=== PATIENT | male | born 1955 | race Caucasian/White ===

== ENCOUNTER 2025-02-24 10:28 | Observation (INO) ==
--- NOTE | 2025-02-15 11:40 | PAT Medication Instructions ---
Medication Instructions Date of Service February 15, 2025 Home Medications Medication Instructions Recorded ciprofloxacin HCl 500 mg tablet 500 mg PO BID #2 tabs 06/14/23 tamsulosin 0.4 mg capsule (Flomax) 0.4 mg PO QAM ciprofloxacin HCl 500 mg tablet 500 mg PO BID finasteride 5 mg tablet 5 mg PO QAM loratadine 10 mg capsule 10 mg PO QAM yrmefbonlqjg-mty-mfpz 45 mg-mefolate 800 mcg DFE-K1 120 mcg capsule (Bariatric Multivitamins) 1 cap PO QAM omeprazole 20 mg tablet,delayed release 20 mg PO QAM sildenafil (pulm.hypertension) 20 mg tablet 20 mg PO TID PRN DO NOT take the morning of surgery loratadine 10 mg capsule 10 mg PO QAM kkoyuqcbeubt-ohh-jvtq 45 mg-mefolate 800 mcg DFE-K1 120 mcg capsule (Bariatric Multivitamins) 1 cap PO QAM sildenafil (pulm.hypertension) 20 mg tablet 20 mg PO TID PRN Take morning of surgery With a small sip of water, OTHERWISE NOTHING TO EAT OR DRINK AFTER MIDNIGHT: tamsulosin 0.4 mg capsule (Flomax) 0.4 mg PO QAM ciprofloxacin HCl 500 mg tablet 500 mg PO BID finasteride 5 mg tablet 5 mg PO QAM omeprazole 20 mg tablet,delayed release 20 mg PO QAM Take evening before surgery ciprofloxacin HCl 500 mg tablet 500 mg PO BID Other Notes If you have any questions please call us at [phone] or [phone] or [phone] or [phone]
--- NOTE | 2025-02-17 12:37 | Anesthesiology Consultation ---
Date of Service February 17, 2025 Assessment & Plan (1) Encounter for pre-operative examination: - Infectious disease screening: Per assessment on 02/17/25- No known recent infectious disease contacts or current infectious disease symptoms. - Outpatient joint assessment: Pt currently scheduled for inpatient pathway. If surgeon requests review for outpatient joint pathway, patient is an acceptable candidate for outpatient joint program from anesthesia standpoint pending surgeon's office assessment that patient is motivated, has good support and completes Same Day Joint Program preop requirements. - [facility] Otolaryngology visit 11/09/24: "He has been experiencing a sore throat, particularly exacerbated by talking, and notes that his voice sometimes becomes lower or almost nonexistent. The sore throat has not improved significantly since starting nystatin, although his cough has lessened. During a recent colonoscopy and endoscopy, a finding was noted on his arytenoid, though he is unsure of its implications. He describes worsening of his voice with increased talking and experiences a sore throat... Procedure: Laryngoscopy.. Description: The scope was inserted through the nose. The left side of the larynx appeared asymmetric. The left true vocal cord was slightly swollen without ulcerative areas. Both vocal cords moved well.. Left vocal cord swelling above the true vocal cord, asymmetric but with normal movement, no ulceration.. Order CT scan of the neck with contrast... Schedule video stroboscopy with speech pathologist. Significant nasal drainage consistent with chronic rhinitis." CT Neck not scheduled until 2025 (after upcoming surgery). Patient denies odynophagia or dysphagia at PAT visit 02/17/25. Case reviewed with Dr. Escalante- feels patient okay to proceed as scheduled; nothing further needed preoperatively from his perspective. - PCP note 02/18/25: Low risk.. Patient is cleared for scheduled surgery. Chart Review Chart Review: Acceptable Risk for Surgery (pending evaluation DOS) and Patient seen in Pre Admission Testing Teaching & Discussion Pre-Anesthesia Teaching/Discussion Notes: Instructed NPO after midnight before surgery,except medications with 15 cc of water. Medication instructions provided according to the [facility] guidelines. History Surgery Operation Date: 02/24/25 12:35 Proposed Procedures p Right Knee Total Knee Arthroplasty(Right) - To Cardona MD Height/Weight Height: 5 ft 11 in Weight: 86.2 kg Allergies Allergy/AdvReac Type Severity Reaction Status Date / Time No Known Allergies Allergy Unknown NO Verified 02/24/25 10:40 Medications Home Medications Medication Instructions Recorded Confirmed Last Taken tamsulosin 0.4 mg capsule (Flomax) 0.4 mg PO QAM 05/10/23 02/24/25 02/23/25 07:30 finasteride 5 mg tablet 5 mg PO QAM 02/15/25 02/24/25 02/23/25 07:30 loratadine 10 mg capsule 10 mg PO QAM 02/15/25 02/24/25 02/23/25 07:30 utujbawcefrk-oiz-dewg 45 1 cap PO QAM 02/15/25 02/24/25 02/23/25 07:30 mg-mefolate 800 mcg DFE-K1 120 mcg capsule (Bariatric Multivitamins) omeprazole 20 mg tablet,delayed 20 mg PO QAM 02/15/25 02/24/25 Unknown release sildenafil (pulm.hypertension) 20 20 mg PO TID PRN Sexual Activity 02/15/25 02/24/25 Unknown mg tablet Active Medications Generic Name Dose Route Start Last Admin Trade Name Freq PRN Reason Stop Dose Admin Acetaminophen 1,000 mg 02/24/25 06:00 02/24/25 10:43 Acetaminophen 500 Mg Tab PO 02/24/25 18:00 1,000 mg PREOP MASHA Administration Celecoxib 200 mg 02/24/25 06:00 02/24/25 10:43 Celebrex 200 Mg Cap PO 02/24/25 18:00 200 mg PREOP MASHA Administration Dexamethasone Sodium Phosphate 10 mg 02/24/25 06:00 02/24/25 10:43 DexamethasonePf 10 Mg/Ml Vial IV 02/24/25 18:00 10 mg PREOP MASHA Administration Famotidine 20 mg 02/24/25 06:00 02/24/25 10:43 Famotidine 20 Mg Tab PO 02/24/25 18:00 20 mg PREOP MASHA Administration Gabapentin 300 mg 02/24/25 06:00 02/24/25 10:44 Gabapentin 300 Mg Cap PO 02/24/25 18:00 300 mg PREOP MASHA Administration Lactated Ringer's 1,000 mls @ 60 mls/hr 02/24/25 06:00 02/24/25 10:44 Lr IV 02/24/25 22:39 Not Given .[id number] MASHA Lactated Ringer's 1,000 mls @ 15 mls/hr 02/24/25 06:00 02/24/25 10:55 Lr IV 02/24/25 18:00 15 mls/hr .Q24H MASHA Administration Metoclopramide HCl 10 mg 02/24/25 06:00 02/24/25 10:43 Metoclopramide Hcl 10 Mg Tablet PO 02/24/25 18:00 10 mg PREOP MASHA Administration Past Medical History Medical History BPH (benign prostatic hyperplasia) Follows with urology (Dr. 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 Asymmetry of the left supraglottis with no ulceration seen somewhat sluggish movement of the left but does appear that bilateral vocal cords are mobile. Subglottis is clear. Contour of the bilateral vocal cords are clean and healthy with no nodule seen." Neck CT ordered (not scheduled until 03/2025) Hx of colonic polyps Exercise / Class Metabolic Activity II 4-5 Yardwork/Stairs/Walk up hill (one FS: No CP, no SOB) Past Surgical History Surgical History Hx of cardiac cath 35 years ago- no stents Hx of colonoscopy with polypectomy (10/20/24) History of esophagogastroduodenoscopy (EGD) (10/20/24) History of intestinal surgery (11/07/20) Herniated bowel- ?result of gastric bypass History of back surgery (10/22/19) L3-5 (had fracture f/t injury- falling off of truck onto a ramp) 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 Physical Exam Vital Signs Last Vital Signs Temp 36.7 C 02/24/25 10:33 Pulse 59 L 02/24/25 10:33 Resp 18 02/24/25 10:33 BP 144/81 H 02/24/25 10:33 Pulse Ox 100 02/24/25 10:33 O2 Del Method Room Air 02/24/25 10:33 BP 123/69 P 60 TEMP 97.5 SP02 97%RA RESP 18 Physical Full cervical extension range of motion. Full TMJ range of motion. TMD 3 finger breaths Mallampati Score III Dentition: missing molars Lungs: clear throughout to auscultation Cardiac: regular rate and rhythm, no murmurs noted Spine: normal Carotid arteries: negative bruit Extremities: no LE edema Lab Results Anesthesia Preop Results Results Anesthesia Widget: WBC 6.35 K/ul (4.8-10.8) 02/17/25 Hgb 13.3 g/dL (14.0-18.0) L 02/17/25 Hct 39.3 % (42.0-52.0) L 02/17/25 Plt 196 K/uL (130-400) 02/17/25 Na 136 mmol/L (136-145) 02/17/25 K 4.4 mmol/L (3.5-5.1) 02/17/25 Cl 105 mmol/L (98-107) 02/17/25 CO2 26 mmol/L (21-32) 02/17/25 BUN 12 mg/dl (6-23) 02/17/25 Creat 1.09 mg/dl (0.6-1.4) 02/17/25 Glucose Level 97 mg/dl (70-99(Fasting)) 02/17/25 PT 11.8 Seconds (9.0-12.0) 02/17/25 PTT 27 Seconds (21-31) 02/17/25 INR 1.1 (0.9-1.1) 02/17/25 Urine Color Yellow 02/17/25 Urine Appearance Clear (Clear) 02/17/25 Urine pH 6.0 (4.5-7.5) 02/17/25 Urine Specific [place] 1.005 (1.000-1.030) 02/17/25 Urine Protein Negative (Negative) 02/17/25 Urine Glucose (UA) Negative (Negative) 02/17/25 Urine Ketones Negative (Negative) 02/17/25 Urine Blood Negative (Negative) 02/17/25 Urine Nitrite Negative (Negative) 02/17/25 Urine Bilirubin Negative (Negative) 02/17/25 Urine Urobilinogen Negative (Negative) 02/17/25 Urine Leukocyte Esterase Negative (Negative) 02/17/25 Blood Type A Positive 02/17/25 Antibody Screen NEGATIVE 02/17/25 Testing Electrocardiogram Date: 02/17/25 SB at 58bpm. "Otherwise normal ECG" Chest X-Ray Date: 02/17/25 FINDINGS: Lung volumes are normal. Lungs are clear. There is no pneumothorax or pleural effusion. Cardiac size is normal. Mediastinal contours are normal. There is no evidence for pulmonary edema. IMPRESSION: No acute cardiopulmonary findings. Other Testing Flexible nasopharyngoscopy Date: 11/09/24 Asymmetry of the left supraglottis with no ulceration seen somewhat sluggish movement of the left but does appear that bilateral vocal cords are mobile. Subglottis is clear. Contour of the bilateral vocal cords are clean and healthy with no nodule seen.
--- NOTE | 2025-02-23 19:51 | History & Physical Report ---
Date of Service February 23, 2025 Assessment & Plan (1) Osteoarthritis of right knee: Plan: Severe end-stage osteoarthritis right knee failed conservative management patient also has likely inflammatory arthritic changes due to chondrocalcinosis throughout the knee. Plan is to proceed with right total knee replacement possible synovectomy. Patient scheduled for [place] triathlon total knee replacement. Osteoarthritis type: primary Qualified Code(s): M17.11 - Unilateral primary osteoarthritis, right knee (2) Chondrocalcinosis: History of Present Illness Chief Complaint: Chronic right knee pain Primary Care Provider: Mraiano Willard DO 69-year-old male with right knee pain related to osteoarthritis and failed conservative management. History of left knee replacement in the past. * Patient denies headaches, sweats, fevers, chills, double vision, blurred vision, cough, sore throat, dysphagia, chest pain, sob, wheezing, n/v/d/c, numbness, tingling, fatigue, urinary symptoms, mood disorders. ROS positive for osteoart hritis of the spine and a enlarged prostate Allergies Allergy/AdvReac Type Severity Reaction Status Date / Time No Known Allergies Allergy Unknown NO Verified 02/15/25 10:49 Home Medications Medication Instructions Recorded Confirmed Type tamsulosin 0.4 mg capsule (Flomax) 0.4 mg PO QAM 05/10/23 02/15/25 History finasteride 5 mg tablet 5 mg PO QAM 02/15/25 02/15/25 History loratadine 10 mg capsule 10 mg PO QAM 02/15/25 02/15/25 History qcsochrmhkhq-dhg-emel 45 1 cap PO QAM 02/15/25 02/15/25 History mg-mefolate 800 mcg DFE-K1 120 mcg capsule (Bariatric Multivitamins) omeprazole 20 mg tablet,delayed 20 mg PO QAM 02/15/25 02/15/25 History release sildenafil (pulm.hypertension) 20 20 mg PO TID PRN Sexual Activity 02/15/25 02/15/25 History mg tablet Past Med/Surg History Problem List (Updated 02/23/25 @ 19:50 by To Cardona MD) Chondrocalcinosis Osteoarthritis of right knee Encounter for pre-operative examination Erectile dysfunction Elevated PSA Medical History BPH (benign prostatic hyperplasia) Follows with urology (Dr. 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 Asymmetry of the left supraglottis with no ulceration seen somewhat sluggish movement of the left but does appear that bilateral vocal cords are mobile. Subglottis is clear. 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) History of left knee replacement (02/07/09) Social History Smoking Status: Never smoker Second Hand Exposure: No; Do You Dip or Chew Tobacco: No; Tobacco Cessation Education Requested by Patient: No Hx Alcohol Use: No Hx Substance Use: No Preferred Language: Hungarian Communication Ability: Effective 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: No Beliefs That Will Affect Care: None Current Living Situation: Spouse Feels Safe at Home: Yes Safety Concerns: Feels Safe At This Time Assistive Devices: Glasses Review of Systems All systems reviewed & are unremarkable except as noted in HPI & below Physical Exam Constitutional: WD/WN, vitals as above Respiratory: normal respiratory effort; no respiratory distress Cardiovascular: Rate/Rhythm: regular rate and regular rhythm Musculoskeletal: Right knee with varus knee mild effusion surgical scars mild swelling patella crepitation painful range of motion 5 to 115 degrees range of motion distal neurological exam intact. Left knee 0 to 125 degrees range of motion neutral alignment surgical scar scars normal stability. Skin: no rashes, warm and dry Neurologic: normal touch/pain/proprioception Psychiatric: A+Ox3, euthymic affect Results & Data Diagnostic Findings Right knee x-ray demonstrates tricompartmental osteoarthritis with a varus knee fiyd-hu-mfpo medial compartment with moderately advanced tricompartmental disease in other compartments with extensive chondrocalcinosis of the joint surfaces and menisci.
[~2025-02-24 10:28] MED LIST: BUPIVACAINE 0.5 % 5 MG/1 ML PF 10ML VIAL ONE; MIDAZOLAM HCL 1 MG/ML 2ML VIAL ONE; ROPIVACAINE 0.5% 5 MG/ML 30 ML VIAL ONE
[2025-02-24] MEDS: CeleBREX 200 MG CAP PO SCH (10:43)
[2025-02-24] MEDS: METOCLOPRAMIDE HCL 10 MG TABLET PO SCH (10:43)
[2025-02-24] MEDS: ACETAMINOPHEN 500 MG TAB PO SCH ×2 (10:43→18:41)
[2025-02-24] MEDS: dexAMETHasone**PF** 10 MG/ML VIAL IV SCH (10:43)
[2025-02-24] MEDS: FAMOTIDINE 20 MG TAB PO SCH (10:43)
[2025-02-24] MEDS: LR 60ML/HR IV SCH (10:44)
[2025-02-24] MEDS: GABAPENTIN 300 MG CAP PO SCH (10:44)
[2025-02-24] MEDS: LR 500ML BOLUS, THEN 15ML/HR IV SCH (10:55)
--- NOTE | 2025-02-24 13:29 | History & Physical Bridge Note ---
Date of Service February 24, 2025 History & Physical Bridge Note I have examined the patient, reviewed the History & Physical and in the interval since the performance of the History & Physical I have noted the following changes of clinical significance: no changes noted
[2025-02-24] MEDS: TRANEXAMIC ACID 1,000 MG **IV Pre-op IV SCH (13:38)
[2025-02-24] MEDS ORDERED: PROPOFOL IV EMULSION 10 MG/ML 20 ML VIAL IV ONE ×3 (14:25→16:22)
[2025-02-24] MEDS: ORTHO JOINT ANESTHETIC ONE (14:46)
[2025-02-24] MEDS: ROPIVACAINE 0.5% HCL/PF 246 MG, Ketorolac (*for OR use only*) 30 MG in SODIUM CHLORIDE ... INFIL SCH (15:45)
--- NOTE | 2025-02-24 17:01 | Operative Report ---
Post Operative Report Pre & Post Diagnosis Operation Date: 02/24/25 12:35 Pre-Op Diagnosis: Osteoarthritis of right knee, chondrocalcinosis, synovitis, history of knee arthrotomy. Post-Op Diagnosis: Osteoarthritis of right knee, chondrocalcinosis, synovitis, history of knee arthrotomy. I identified the patient and participated in the time-out.: Yes Procedure Operation Date: 02/24/25 12:35 Actual Procedures p Right Knee Total Knee Arthroplasty(Right), partial synovectomy excision multiple calcium deposits.- To Cardona MD Surgeon To Cardona MD Lead Cook Jonathan HAMILTON Estimated Blood Loss 20 Findings Consistent with Post-Op Diagnosis Specimens Bone cuts Drains 2 Hemovac Anesthesia Type MAC Spinal Regional Complications none Disposition Disposition: Recovery Room Indications 69-year-old male with chronic progressive osteoarthritis right knee failed conservative management. Radiographs demonstrate tricompartmental osteoarthritis grade 4 [id number]-[id number] medial compartment with extensive calcification throughout the knee joint consistent with chondrocalcinosis probable pseudogout. Description of Procedure Patient taken to the operating room the size under spinal MAC regional block anesthesia. Patient was placed supine on the operating table. A pneumatic tourniquet was placed about the right upper thigh. The right lower extremity was prepped and draped in sterile fashion. Knee exam demonstrated thickened widened knee joint with knee effusion and some medial collateral ligament instability with valgus stress and a 15 degree flexion contracture with flexion 110 degrees. There was an old curvilinear scar along the medial knee from prior arthrotomy. The leg was elevated exsanguinated with an Esmarch bandage and pneumatic tourniquet was raised to 325 millimeters of mercury. Skin incised sharply utilizing the curvilinear incisional scar and extending this distal and proximal for full exposure. Subcutaneous flaps elevated. Incision was made through the medial retinaculum extending up in the mid third of the quadriceps tendon and down to the medial tibial tubercle. Intra-articular findings demonstrated tricompartmental osteoarthritis with grade 4 [id number]-dy-tyrr medial compartment with calcium deposits throughout the knee joint embedded into the synovium articular surfaces and tendons including the undersurface of the quadriceps tendon which had multiple calcium deposits. The Augmentra triDocebon total knee arthroplasty system was used. To expose the knee the infrapatellar fat pad was resected. The meniscal remnants and cruciate ligaments were resected. The anterior fat pad over the femur in the area of the location of the anterior flange of the femoral component was resected. The lateral synovial bands were released. Good bit of time was taken to remove multiple Deposits from the Synovium along with Some Inflamed Synovium When Necessary and on the Undersurface of the Quadriceps Tendon and throughout the Knee Joint. The femur was exposed. An intramedullary drill hole was made into the canal. A guide jason was placed. Distal femoral cutting guide was adjusted to resect a 5 degree valgus cut with 10 millimeters distal femur resected. The knee was extended and a subperiosteal peel lateral release was performed around the patella. Patella width was measured and width was reproduced using a freehand cut technique and a 32 oval patella component. The 3 drill holes were made and the excess lateral facet was beveled off to prevent any impingement. Attention was taken back to the femur which was exposed with retractors and the femoral sizing guide was pinned in position. The drill holes were placed in 3 of external rotation to match the epicondylar axis. The femur sized for a 6 component. The 4-in-1 cutting block was placed and then the anterior posterior and chamfer cuts are made. The tibia was then subluxed. The external tibial cutting guide was adjusted to make a perpendicular cut to the long axis of the tibia below the most deficient bone loss side. Cut was adjusted for slope. A lamina alarm operator was used and the flexion extension gaps were balanced. Some lateral capsular releases were required. All posterior osteophytes removed. All meniscal remnants were resected. The tibia exposed and the trial tibial component size 6 was externally rotated in line with the tibial tubercle and pinned in position. The punch for stem was used. The notch cutting device was centered appropriately and the femoral notch cut was made. The femoral trial was inserted. Trial tibial inserts were placed and size 11 gave balanced ligaments through flexion and extension. Patella tracking was assessed. The patella tracked centrally. The trial components were then removed and the orthomix anesthetic cocktail was injected per protocol. The knee was then copiously irrigated with pulsatile lavage saline solution. Final components were then cemented with Refobacin cement. Final components were [place] triathlon 6 right posterior stabilized femoral component with a size 6 tibial primary baseplate component with a 11 mm X.3 polyethylene posterior stabilized tibial bearing insert and a X.3 polyethylene asymmetric patella size 32 x 10 mm. After the cement cured further lavage was performed with Irrisept followed by pulsatile saline solution and then and 2 Hemovac drains were brought out laterally. The quadriceps tendon and medial retinaculum were closed with #2 FiberWire dcexig-lv-qxbxh sutures along the medial retinaculum medial side of the patella and distal quadriceps tendon and an additional uhyzlx-oq-jottl suture at the apex of the quadriceps tendon split proximally and an additional vwvwmt-ba-klhgc suture at the level of the tibial polyethylene in the patella tendon. a 0 running locking STRATAFIX suture was placed starting at the proximal split in the quadriceps tendon extending down to the inferior pole the patella and then below that level qqhrne-fg-wndga #1 Vicryl sutures were utilized to repair the medial retinaculum to the patella tendon. The knee was taken through full range of motion and the repair was secure. Knee range of motion was 0 through 130 degrees. The subcutaneous tissues were closed with 2-0 Vicryl sutures. Skin was closed with surgical noah. Adaptic gauze and ABD dressing was applied. Maurizio wrap was placed from the foot to the thigh. The patient tolerated the procedure well. Jonathan HAMILTON was my physician assistant general manager who participated as sampler first and was involved in all aspects of the procedure including patient positioning prepping and draping,leg positioning ,soft tissue retraction and instrument management and participated in the closing and will participate in postoperative care of the patient. The patient tolerated the procedure well. Im ordering collagen sheets as a primary dressing and bordered super absorbent for secondary dressings for the wound resulting from this surgery. Collagen is being utilized to encourage the growth of blood vessels and granulation tissue. The collagen will also speed up the wound healing process, increase skin tensile strength at the surgery site and lessen the chance of a wound dehiscence, help prevent infection, and reduce the appearance of scarring. The silicone secondary dressings will protect the wound and help keep it clean and minimize that chances for infection. I believe that this treatment protocol is medically necessary to help facilitate the best outcome possible for my patient. I attest to the content of the Intraoperative Record and any orders documented therein. Any exceptions are noted below.
--- NOTE | 2025-02-24 17:09 | Anesthesiology Progress Note ---
Date of Service February 24, 2025 Anesthesia Post Procedure Vital Signs Vital Signs: Temp Pulse Pulse Resp BP Pulse Ox O2 Del Method 02/24/25 17:05 36.6 C 57 L 14 124/80 96 Room Air 02/24/25 16:55 64 12 110/75 95 Room Air 02/24/25 16:49 36.0 C L 63 16 112/78 100 Room Air 02/24/25 10:33 36.7 C 59 L 18 144/81 H 100 Room Air Transfer of Care Handoff Completed per policy Notes Mental Status: alert / awake / arousable and participated in evaluation Patient Amnestic to Procedure: Yes Nausea / Vomiting: adequately controlled Pain: adequately controlled Airway Patency, RR, SpO2: stable & adequate BP & HR: stable & adequate Hydration State: stable & adequate Neuraxial Anesthesia: was administered and sensory block is resolving Anesthetic Complications: no major complications apparent and Pt Satisfied with anesthetic care
[2025-02-24] MEDS ORDERED: MAGNESIUM HYDROXIDE SUSP 30 ML UDC PO PRN (17:42)
[2025-02-24] MEDS ORDERED: METOCLOPRAMIDE HCL INJ 5 MG/ML 2 ML VIAL IV PRN (17:42)
[2025-02-24] MEDS ORDERED: ALUMINUM/MAGNESIUM SUSP 30 ML UDC PO PRN (17:42)
[2025-02-24] MEDS ORDERED: ONDANSETRON INJ 2 MG/ML 2 ML VIAL IV PRN (17:42)
[2025-02-24] MEDS ORDERED: diphenhydrAMINE Capsule 25 MG CAP PO PRN (17:42)
[2025-02-24] MEDS ORDERED: NALOXONE HCL 0.4 MG/1 ML VIAL/CARP IV PRN (17:42)
[2025-02-24] MEDS ORDERED: HYDROmorphone INJ 0.5 MG/0.5 ML SYR IV PRN (17:42)
--- NOTE | 2025-02-24 18:30 | XRay Report ---
History: Arthroplasty Comparison: None Findings/impression: There is no acute fracture or dislocation. Alignment is anatomic. Right knee arthroplasty appears intact. No evidence for complication or hardware malfunction. Postoperative fluid and air. Electronically signed by Panda Rodríguez 02-24-2025 6:29 PM
[2025-02-24] MEDS: SODIUM CHLORIDE 0.9% 1,000 ML IV SCH (19:31)
[2025-02-24] MEDS: TRANEXAMIC ACID / 0.7% NACL 1,000 MG/100 ML BAG IV SCH (21:03)
[2025-02-24] MEDS: ASPIRIN 81 MG ECTAB PO SCH (21:07)
[2025-02-24] MEDS: DOCUSATE SODIUM 100 MG CAP PO SCH (21:07)
[2025-02-24] MEDS: SENNA 8.6 MG TAB PO SCH (21:08)
[2025-02-25] MEDS: KETOROLAC TROMETHAMINE 15 MG/ML VIAL IV PRN (01:01)
[2025-02-25 04:10] VITALS: RESP 18
[2025-02-25 07:27] LABS: Hematocrit (blood only) 31.9 % (42.0-52.0); Hemoglobin 11.0 g/dL (14.0-18.0); Mean Corpuscular Hemoglobin 30.6 pg (25.0-34.0); Mean Corpuscular Volume 88.6 fL (80.0-100.0); Platelet Count 166 K/uL (130-400); RDW Standard Deviation 43.0 fL (36.4-46.3); Red Blood Count 3.60 M/uL (4.70-6.10); White Blood Count 12.22 K/ul (4.8-10.8)
[2025-02-25 08:04] VITALS: BP 138/72; PULSE 57; TEMP 98.2; O2SAT 96
[2025-02-25] MEDS: dexAMETHasone 10 MG in SYRINGE 0 ML IV SCH (08:08)
[2025-02-25] MEDS: TAMSULOSIN HCL 0.4 MG CAP PO SCH (08:09)
[2025-02-25] MEDS: FINASTERIDE 5 MG TAB PO SCH (08:09)
[2025-02-25] MEDS: LORATADINE 10 MG TAB PO SCH (08:09)
[2025-02-25] MEDS: CEROVITE ADV FORMULA TAB PO SCH (08:10)
--- NOTE | 2025-02-25 08:19 | Orthopedic Progress Note ---
Date of Service February 25, 2025 Assessment & Plan (1) Osteoarthritis of right knee: Plan: Postop day 1 right total knee replacement. Last shift drainage was 110 but nothing in Hemovac right now so I think we can discontinue this prior to discharge. He has conventional bandage so we can leave the bandage on have it changed 40 hours postop put dry sterile dressings and a new Maurizio wrap over the knee keep it covered until dry. Patient will do outpatient physical therapy. Follow-up in 2 weeks. Severe end-stage osteoarthritis right knee failed conservative management patient also has likely inflammatory arthritic changes due to chondrocalcinosis throughout the knee. Plan is to proceed with right total knee replacement possible synovectomy. Patient scheduled for Neel triathlon total knee replacement. (2) Chondrocalcinosis: Admission and Anticipated Discharge Date Admission Date: February 24, 2025 Subjective No complaints feels like things are going well Review of Systems Review of Systems: Feels well noncontributory Physical Exam Musculoskeletal: Independent straight leg raise satisfactory circulation sensorimotor exam distally with dressing dry and intact Results & Data Vital Signs (Past 12 Hours) Vital Signs Temp Pulse Pulse Resp BP Pulse Ox O2 Del Method 02/25/25 08:03 36.8 C 57 L 18 138/72 96 Room Air 02/25/25 04:00 36.7 C 61 18 146/78 H 97 Room Air 02/24/25 23:07 36.6 C 57 L 15 133/73 97 Room Air 02/24/25 20:40 36.5 C 56 L 18 141/81 H 97 Room Air Diagnostic Findings Satisfactory aligned total knee replacement (1) Osteoarthritis of right knee Osteoarthritis type: primary Qualified Code(s): M17.11 - Unilateral primary osteoarthritis, right knee
[2025-02-25 08:25] LABS: Anion Gap 5.0 (3-11); Blood Urea Nitrogen 20.0 mg/dl (6-23); Calcium 8.6 mg/dl (8.6-10.3); Carbon Dioxide 25.0 mmol/L (21-32); Chloride 105.0 mmol/L (98-107); Creatinine Clr Calc Pharmacy 71.4 ml/min; Glucose 109.0 mg/dl (70-99(Fasting)); Potassium 4.5 mmol/L (3.5-5.1); Sodium 135.0 mmol/L (136-145)
== END 2025-02-25 11:52 | disposition home or self-care (01) ==
LOC: ASU 10:28 → 3N 10:28